=== PATIENT | male | born 1970 | race African-American/Black ===

== ENCOUNTER 2024-03-25 06:21 | Emergency (ER) | payer OTHER ==
[2024-03-25] MEDS ORDERED: KETOROLAC 30 MG/ML INJ ONE (07:24)
[2024-03-25] MEDS ORDERED: ONDANSETRON 4 MG (ODT) TAB ONE (07:24)
[2024-03-25] MEDS ORDERED: ACETAMINOPHEN 500 MG TAB ONE (07:24)
--- NOTE | 2024-03-25 08:00 | RAD REPORT ---
EXAM: CT Head Brain Wo Cont HISTORY: head injury COMPARISON: None TECHNIQUE: Multiple contiguous axial images were obtained for a CT of the brain without contrast. Sag ittal and coronal reformats were performed. One or more of the following dose reduction techniques were used: Automated exposure control, adjus tment of the mA and kV according to patient size, and iterative reconstruction. Unless otherwise specified, incidental findings do not require dedicated imaging follow-up. FINDINGS: No evidence of hydrocephalus, intracranial hemorrhage, or extra-axial fluid collection. The brain is normal in morphology. The calvarium is intact. The visualized paranasal sinuses and mastoid air cells are essentially clear . Right frontal scalp swelling and small hematoma. IMPRESSION: No evidence of acute intracranial abnormality. Right frontal scalp swelling and small hematoma.
--- NOTE | 2024-03-25 08:03 | RAD REPORT ---
EXAM: CT C Spine Wo Con HISTORY: neck injury COMPARISON: None TECHNIQUE: Multiple contiguous axial images were obtained in a CT of the cervical spine without IV co ntrast. Sagittal and coronal reformats were performed. One or more of the following dose reduction techniques were used: Automated exposure control, adjustment of the mA and kV according to patient si ze, and iterative reconstruction. Unless otherwise specified, incidental findings do not require dedicated imaging follow-up. FINDINGS: The vertebral bodies and intervertebral discs demonstrate normal height and alignment without fractur e or subluxation. No degenerative changes are present. No prevertebral soft tissue swelling is seen. Facet joints show mild to moderate degenerative changes more pronounced on the left. Endplate remodel ing with disc height loss most notably at C5-6 and C6-7. Uncovertebral joint spurring at multiple levels as well. Findings contribute to mild degrees of neural foraminal narrowing most notable at the se 2 levels bilaterally. Normal alignment of the skull base with the cervical spine is seen. The lung apices are unremarkable. The cervical soft tissues are unremarkable. IMPRESSION: No evidence of acute osseous abnormality of the cervical spine. Multilevel degenerative changes as above.
--- NOTE | 2024-03-25 08:18 | RAD REPORT ---
EXAMINATION: CT MAXILLOFACIAL WITHOUT CONTRAST CLINICAL INDICATION: [facility] MAIN face injury Bed Name: 16 TECHNIQUE: Axial images were obtained through the facial bones and orbits without intravenous contras t. Sagittal and coronal reconstructions were created from the data. One or more of the following dose reduction techniques were used: Automated exposure control, adjustment of the mA and/or kV accor ding to patient size, and/or iterative reconstruction. Unless otherwise specified, incidental findings do not require dedicated imaging follow-up. COMPARISON: No prior exam. FINDINGS: SOFT TISSUE: No significant abnormalities. BONES: Mild irregularity along the left nasal bone, may relate to a subtle fracture of uncertain translational specialist nicity. No other evidence of acute fracture, dislocation, or aggressive osseous lesions. No lesion of the visualized skull base or calvarium. ORBITS: The globes are intact. No intraorbital hemorrhage or mass. SINUSES: The paranasal sinuses and tympanomastoid cavities are predominantly clear. IMPRESSION: Mild irregularity of the left nasal bone suggesting a subtle fracture of uncertain chronicity. Redemonstration of right frontal scalp swelling and small hematoma.
--- NOTE | 2024-03-25 08:26 | ER ---
Nurse's Notes [facility] Name: Andi Santos Age: 53 yrs Sex: Male : 1970 Arrival Date: 03/25/2024 Time: 06:21 Bed 16 Private MD: Diagnosis: Forehead Contusion, Nose Abrasion;Postconcussional syndrome;Nasal Bone Fracture Presentation: 03/25 06:34 Chief complaint: EMS states: TONED OUT FOR INMATE FOUND FACE DOWN IN CELL. POSITIVE LOC dd2 FOR UNKNOWN TIME. PT AAO X3 UPON EMS ARRIVAL. HEMATOMA TO FOREHEAD AND LACERATION TO RT NOSE. Coronavirus screen: At this time, the client does not indicate any symptoms associated with coronavirus-19. Ebola Screen: No symptoms or risks identified at this time. Initial Sepsis Screen: Does the patient meet any 2 criteria? No. Patient's initial sepsis screen is negative. Does the patient have a suspected source of infection? No. Patient's initial sepsis screen is negative. Risk Assessment: Do you want to hurt yourself or someone else? Patient reports no desire to harm self or others. Onset of symptoms was March 25, 2024. Care prior to arrival: Cervical collar in place. Glucose check: 88. 06:34 Method Of Arrival: EMS: [facility] dd2 06:34 Acuity: SAFIA 3 dd2 07:00 Care prior to arrival: Cervical collar in place. 07:43 Mechanism of Injury: Fall. Trauma event details: Injury occurred in the [facility], Injury occurred: in an institution. Injury occurred: March 25, 2024. Triage Assessment: 06:52 General: Appears in no apparent distress. Behavior is calm, cooperative, appropriate dd2 for age. Pain: Complains of pain in forehead Pain does not radiate. Pain currently is 6 out of 10 on a pain scale. EENT: No deficits noted. No signs and/or symptoms were reported regarding the EENT system. Neuro: No deficits noted. Neuro: Level of Consciousness is awake, alert, obeys commands, Oriented to person, place, time, situation, Appropriate for age. Cardiovascular: No deficits noted. Respiratory: No deficits noted. GI: No deficits noted. No signs and/or symptoms were reported involving the gastrointestinal system. : No deficits noted. No signs and/or symptoms were reported regarding the genitourinary system. Musculoskeletal: Circulation, motion, and sensation intact. Range of motion: intact in all extremities, Reports pain in NECK. 06:58 Derm: Wound noted left side of nose and forehead. Injury Description: Head injury dd2 sustained to forehead. Trauma Activation: Not Applicable Physician: ED Physician; Name: ; Notified At: ; Arrived At: Physician: General Surgeon; Name: ; Notified At: ; Arrived At: Physician: Radiology; Name: ; Notified At: ; Arrived At: Physician: Respiratory; Name: ; Notified At: ; Arrived At: Physician: Lab; Name: ; Notified At: ; Arrived At: Historical: - Allergies: 06:52 No Known Allergies; dd2 - PMHx: 06:52 Hypertensive disorder; dd2 - PSHx: 06:52 None; dd2 - Immunization history:: Adult Immunizations unknown. - Infectious Disease History:: Denies. - Immunization history: Last tetanus immunization: - up to date. - Social history:: Smoking status: Patient reports the use of cigarette tobacco products. - Family history:: not pertinent. Screenin:42 [facility] ED Fall Risk Assessment (Adult) History of falling in the last 3 months, ph including since admission Yes- single mechanical fall (1 pt) Confusion or Disorientation No (0 pts) Intoxicated or Sedated No (0 pts) Impaired Gait Yes (1 pt) Mobility Assist Device Used No (0 pt) Altered Elimination No (0 pt) Score/Fall Risk Level 0 - 2 = Low Risk Oriented to surroundings, Maintained a safe environment, Hourly rounding (assess needs \T\ fall precautionary measures) done. Abuse screen: Denies threats or abuse. Denies injuries from another. Nutritional screening: No deficits noted. Tuberculosis screening: No symptoms or risk factors identified. Primary Survey: 07:00 NO uncontrolled hemorrhage observed. A: The client is awake and alert. The airway is ph patent. Breathing/Chest: Spontaneous respiratory effort, equal unlabored respirations, breath sounds clear bilaterally, regular pattern, symmetrical chest rise and fall. Circulation: No external hemorrhage present. Regular and strong central pulse, skin warm/dry/normal color. Disability Pupils are equal, round, reactive to light and accommodation. Client is alert. Exposure/Environment: There is no evidence of uncontrolled external bleeding. Obvious injury(ies) are noted at this time: small laceration to nose. 08:46 Reassessment Alertness and Airway: Awake and alert. The airway is patent. Breathing: ph Spontaneous respiratory effort, equal unlabored respirations, breath sounds clear bilaterally, regular pattern with symmetrical chest rise and fall. Circulation: No external hemorrhage noted. Regular and strong central pulse, skin warm/dry/normal color. Disability: Pupils Pupils are equal, round, reactive to light and accomodation. Alert. Secondary Survey: 07:44 HEENT: Head Other swelling to forehead Nose: small laceration to nose. ph Assessment: 06:55 Reassessment: SEE TRIAGE ASSESSMENT FOR FULL ASSESSMENT. dd2 Vital Signs: 06:34 BP 153 / 110; Pulse 85; Resp 16; Temp 97.7; Pulse Ox 98% on R/A; Weight 72.57 kg; dd2 Height 5 ft. 7 in. ; 08:47 BP 147 / 98; Pulse 81; Resp 18; Temp 98; Pulse Ox 99% on R/A; ph 06:34 Body Mass Index 25.06 (72.57 kg, 170.18 cm) dd2 [place] Coma Score: 07:41 Eye Response: spontaneous(4). Motor Response: obeys commands(6). Verbal Response: sp4 oriented(5). Total: 15. 07:43 Eye Response: spontaneous(4). Motor Response: obeys commands(6). Verbal Response: ph oriented(5). Total: 15. 07:43 Eye Response: spontaneous(4). Motor Response: obeys commands(6). Verbal Response: sp4 oriented(5). Total: 15. Trauma Score (Adult): 07:43 Eye Response: spontaneous(1); Verbal Response: oriented(1); Motor Response: obeys ph commands(2); Systolic BP: > 89 mm Hg(4); Respiratory Rate: 10 to 29 per min(4); Pascale Score: 15; Trauma Score: 12 ED Course: 06:32 Patient arrived in ED. dd2 06:45 Reg Mott MD is Attending Physician. sp4 06:52 Triage completed. dd2 06:52 Arm band placed on right wrist. Patient placed in an exam room, on a stretcher, on dd2 pulse oximetry. 06:58 Patient maintains SpO2 saturation greater than 95% on room air. dd2 07:15 CT Facial Bones W/O Con In Process Unspecified. EDMS 07:16 CT Head Brain wo Cont In Process Unspecified. EDMS 07:16 CT C Spine In Process Unspecified. EDMS 07:18 Kanchan Rodriguez RN is Primary Nurse. ph 07:44 Attending Physician role handed off by Reg Mott MD ec2 07:44 Edd Serrato MD is Attending Physician. ec2 07:44 Patient has correct armband on for positive identification. Bed in low position. Call ph light in reach. Side rails up X 1. Pulse ox on. NIBP on. Door closed. Noise minimized. Warm blanket given. Pillow given. 07:44 Thermoregulation: warm blanket given to patient. ph 08:46 No provider procedures requiring assistance completed. Patient did not have IV access ph during this emergency room visit. Administered Medications: 07:31 Drug: Ketorolac IM 60 mg IM once Route: IM; Site: right deltoid; ph 08:47 Follow up: Response: No adverse reaction; Pain is decreased ph 07:31 Drug: Acetaminophen PO 1000 mg PO once Route: PO; ph 08:47 Follow up: Response: No adverse reaction; Pain is decreased ph 07:31 Drug: Ondansetron PO 4 mg PO once Route: PO; ph 08:47 Follow up: Response: No adverse reaction; Nausea is decreased ph Medication: 07:44 VIS not applicable for this client. ph Intake: 08:46 PO: 50ml (Water); Total: 50ml. ph Output: 08:46 Urine: 0ml; Total: 0ml. ph Outcome: 08:25 Discharge ordered by . ec2 08:47 Discharged to Law Enforcement ph 08:47 Condition: good 08:47 Discharge instructions given to patient, Instructed on discharge instructions, follow up and referral plans. Demonstrated understanding of instructions, follow-up care, 08:48 Patient's length of stay was not longer than 2 hours. ph 08:48 Patient left the ED. ph Signatures: Dispatcher [employer] Kanchan Calvillo RN RN ph Potepalov, Sergey, MD MD sp4 Edd Serrato MD MD ec2 CLINT MADSEN RN RN dd2 Corrections: (The following items were deleted from the chart) 06:52 06:52 PMHx: None; dd2 dd2 07: 06:52 Derm: Wound noted forehead and right side of the nose Wound is HEMATOMA TO dd2 FOREHEAD, LACERATION TO RT SIDE OF NOSE dd2 07: 06:52 Injury Description: Head injury sustained to forehead is closed, had loss of dd2 consciousness, Laceration sustained to right side of nose a small amount of bleeding noted at this time. dd2
--- NOTE | 2024-03-25 08:26 | EDPHYS ---
Physician Documentation [facility] Name: Andi Santos Age: 53 yrs Sex: Male : 1970 Arrival Date: 03/25/2024 Time: 06:21 Bed 16 Private MD: ED Physician Edd Serrato HPI: 03/25 06:45 This 53 yrs old Black Male presents to ER via Unassigned with complaints of Head Injury sp4 With LOC-Adult. 07:40 53 -year-old male presents with acute head injury after reportedly falling off the bunk sp4 at the local [facility] . 07:41 53-year-old male complains of facial pain nasal pain and head and neck injury.. On sp4 presentation patient is in c-collar and has abrasion to the bridge of the nose. Historical: - Allergies: 06:52 No Known Allergies; dd2 - PMHx: 06:52 Hypertensive disorder; dd2 - PSHx: 06:52 None; dd2 - Immunization history:: Adult Immunizations unknown. - Infectious Disease History:: Denies. - Immunization history: Last tetanus immunization: - up to date. - Social history:: Smoking status: Patient reports the use of cigarette tobacco products. - Family history:: not pertinent. ROS: 07:41 Constitutional: Negative for fever, chills, and weight loss, Positive facial and head sp4 injury 07:41 All other systems are negative, Exam: 07:41 Constitutional: This is a well developed, well nourished patient who is awake, alert, sp4 and in no acute distress. Head/Face: Normocephalic, positive acute nasal swelling positive abrasion to the bridge of her nose Eyes: Pupils equal round and reactive to light, extra-ocular motions intact. Lids and lashes normal. Conjunctiva and sclera are not injected. Cornea within normal limits. Periorbital areas with no swelling, redness, or edema. ENT: Nares patent. No nasal discharge, no septal abnormalities noted. Tympanic membranes are normal and external auditory canals are clear. Oropharynx with no redness, swelling, or masses, exudates, or evidence of obstruction, uvula midline. Mucous membranes moist. Neck: Trachea midline, no thyromegaly or masses palpated, and no cervical lymphadenopathy. Supple, no vertebral point tenderness. Chest/axilla: Normal chest wall appearance and motion. Nontender with no deformity. No lesions are appreciated. Cardiovascular: Regular rate and rhythm with a normal S1 and S2. No gallops, murmurs, or rubs. Normal PMI, no JVD. No pulse deficits. Respiratory: Lungs have equal breath sounds bilaterally, clear to auscultation and percussion. No rales, rhonchi or wheezes noted. No increased work of breathing, no retractions or nasal flaring. Abdomen/GI: Soft, with normal bowel sounds. No distension or tympany. No guarding or rebound. No evidence of tenderness throughout. Back: No spinal tenderness. No costovertebral tenderness. Skin: Warm, dry with normal turgor. Normal color with no rashes, no lesions, and no evidence of cellulitis. MS/ Extremity: Pulses equal, no cyanosis. Neurovascular intact. Full, normal range of motion. Neuro: Awake and alert, GCS 15, oriented to person, place, time, and situation. Cranial nerves II-XII grossly intact. Motor strength 5/5 in all extremities. Sensory grossly intact. Psych: Awake, alert, with orientation to person, place and time. Behavior, mood, and affect are within normal limits Vital Signs: 06:34 BP 153 / 110; Pulse 85; Resp 16; Temp 97.7; Pulse Ox 98% on R/A; Weight 72.57 kg; dd2 Height 5 ft. 7 in. ; 08:47 BP 147 / 98; Pulse 81; Resp 18; Temp 98; Pulse Ox 99% on R/A; ph 06:34 Body Mass Index 25.06 (72.57 kg, 170.18 cm) dd2 Pascale Coma Score: 07:41 Eye Response: spontaneous(4). Motor Response: obeys commands(6). Verbal Response: sp4 oriented(5). Total: 15. 07:43 Eye Response: spontaneous(4). Motor Response: obeys commands(6). Verbal Response: ph oriented(5). Total: 15. 07:43 Eye Response: spontaneous(4). Motor Response: obeys commands(6). Verbal Response: sp4 oriented(5). Total: 15. Trauma Score (Adult): 07:43 Eye Response: spontaneous(1); Verbal Response: oriented(1); Motor Response: obeys ph commands(2); Systolic BP: > 89 mm Hg(4); Respiratory Rate: 10 to 29 per min(4); Pascale Score: 15; Trauma Score: 12 MDM: 07:39 Medical Screening Exam initiated sp4 07:43 Differential diagnosis: Contusion of Hematoma on Laceration of Intracranial bleed- sp4 Concussion cerebral contusion. Data reviewed: vital signs, nurses notes, EMS record, radiologic studies, CT scan. Consideration of Admission/Observation Escalation of care including admission/observation considered. Transition of care: After a detail discussion of the patient's case, care is transferred to Edd Serrato MD. 07:45 ED course: Patient signed out to me by previous physician, brief arrives today after a ec2 fall from a bunk. Plan is to follow-up CT imaging.. 08:25 ED course: Scale hematoma noted, possible left nasal bone fracture noted, CT C-spine ec2 nonactionable. Will discharge home. Return precautions given.. 03/25 06:51 Order name: CT Facial Bones W/O Con; Complete Time: 08:24 sp4 03/25 06:51 Order name: CT Head Brain wo Cont; Complete Time: 08:24 sp4 03/25 06:52 Order name: CT C Spine; Complete Time: 08:24 sp4 Administered Medications: 07:31 Drug: Ketorolac IM 60 mg IM once Route: IM; Site: right deltoid; ph 08:47 Follow up: Response: No adverse reaction; Pain is decreased ph 07:31 Drug: Acetaminophen PO 1000 mg PO once Route: PO; ph 08:47 Follow up: Response: No adverse reaction; Pain is decreased ph 07:31 Drug: Ondansetron PO 4 mg PO once Route: PO; ph 08:47 Follow up: Response: No adverse reaction; Nausea is decreased ph Disposition Summary: 03/25/24 08:25 Discharge Ordered Notes: Location: Home ec2 Condition: Stable ec2 Diagnosis - Forehead Contusion, Nose Abrasion ec2 - Postconcussional syndrome ec2 - Nasal Bone Fracture ec2 Followup: ec2 - With: Private Physician - When: - Reason: Re-evaluation by your physician Discharge Instructions: - Discharge Summary Sheet ec2 - Hematoma, [id number] ec2 - Nasal Fracture, [id number] ec2 Forms: - Medication Reconciliation Form ec2 - Antibiotic Education ec2 - Prescription Opioid Use ec2 - Patient Portal Instructions ec2 - Leadership Thank You Letter ec2 Signatures: Dispatcher [employer] EDKanchan Galarza RN RN Reg Mott MD MD sp4 Edd Serrato MD MD ec2 CLINT MADSEN RN RN dd2 Corrections: (The following items were deleted from the chart) 06:52 06:52 C Spine Wo Con+CT.RAD.BRZ ordered. EDFL EDFL 06:52 06:52 PMHx: None; dd2 dd2
[2024-03-25 09:40] VITALS: BP 147/98; TEMP 98; O2SAT 99
== END 2024-03-25 08:48 | disposition home or self-care (01) ==
LOC: ER 06:21
DX: S02.2XXA Fracture of nasal bones, initial encounter for closed fracture (principal); F07.81 Postconcussional syndrome; S00.83XA Contusion of other part of head, initial encounter; W06.XXXA Fall from bed, initial encounter; Y92.143 Cell of prison as the place of occurrence of the external cause; Z72.0 Tobacco use
CPT/HCPCS: 70450; 72125; 70486; 76377; 96372; 99284; Q0162